=== PATIENT | female | born 1960 | race African-American/Black ===

== ENCOUNTER 2021-08-10 04:23 | Inpatient (IN) | payer BC ==
[2021-07-30 11:21] VITALS: BMI 28.8
[2021-08-10] MEDS ORDERED: ceFAZolin SODIUM 1 GM VIAL IVPB ONE ×3 (15:12→20:30)
[2021-08-10] MEDS ORDERED: VANCOMYCIN 1,000 MG VIAL (RESTRICTED TO ID ONLY) IVPB ONE (15:12)
[2021-08-10] MEDS ORDERED: SODIUM CHLORIDE 0.9% P/F 10 ML VIAL IJ ONE (17:38)
[2021-08-10] MEDS ORDERED: ceFAZolin SODIUM 1 GM VIAL ONE ×2 (18:22→20:02)
[2021-08-10] MEDS ORDERED: PROPOFOL 20 ML ONE (18:32)
[2021-08-10] MEDS ORDERED: ONDANSETRON 4 MG/2 ML VIAL ONE (18:53)
[2021-08-10] MEDS ORDERED: DEXAMETHASONE SOD PHOSPHATE 4 MG/1 ML VIAL ONE (18:53)
[2021-08-10] MEDS ORDERED: KETOROLAC TROMETHAMINE 30 MG/1 ML VIAL ONE (20:24)
[2021-08-10] MEDS ORDERED: ONDANSETRON 4 MG/2 ML VIAL IVPUSH PRN ×2 (21:01→21:10)
[2021-08-10] MEDS ORDERED: MAGNESIUM HYDROX 2400MG/30ML ORAL SUSPENSION 30 ML CUP PO PRN (21:01)
[2021-08-10] MEDS ORDERED: MAG HYDROX/AL HYDROX/SIMETH 30 ML UNIT-DOSE CUP PO PRN (21:01)
[2021-08-10] MEDS: HYDROmorphone HCl 2 MG/ML VIAL IVPUSH PRN ×2 (21:10→22:10)
[2021-08-10] MEDS ORDERED: LACTATED RINGERS SOLUTION 1,000 ML IV SCH (21:15)
[2021-08-10] MEDS: ACETAMINOPHEN 1000 MG/100 ML VIAL IVPB SCH (21:15)
[2021-08-10] MEDS ORDERED: HYDROmorphone HCl 2 MG/ML VIAL IVPUSH PRN (21:15)
[2021-08-10] MEDS ORDERED: HYDROmorphone HCl 2 MG/ML VIAL SQ PRN (21:24)
[2021-08-10] MEDS: LACTATED RINGERS SOLUTION 1,000 ML IV SCH (22:30)
[2021-08-10] MEDS: ROSUVASTATIN CA 40 MG TABLET PO SCH (23:24)
[2021-08-10] MEDS: ASPIRIN COATED 81 MG TABLET.EC PO SCH (23:24)
[2021-08-10] MEDS: SENNOSIDES/DOCUSATE COMBO (SENNA PLUS) TABLET (UD) PO SCH (23:24)
[2021-08-11] MEDS: CEFAZOLIN 2 GM in DEXTROSE 5%-WATER 100 ML IVPB SCH ×3 (01:08→17:15)
[2021-08-11] MEDS: ACETAMINOPHEN 1000 MG/100 ML VIAL IVPB SCH ×3 (02:37→16:34)
[2021-08-11] MEDS: oxyCODONE HCL 5 MG TABLET PO PRN ×2 (05:52→14:17)
[2021-08-11] MEDS: INSULIN SLIDING SCALE (NOVOLOG) 1 VIAL SQ SCH ×4 (06:01→21:51)
[2021-08-11 07:17] LABS: PH,URINE 5.5 (5.0-8.0); URINE APPEARANCE CLEAR; URINE BILIRUBIN NEGATIVE (NEGATIVE); URINE COLOR YELLOW; URINE GLUCOSE (UA) NEGATIVE (NEGATIVE); URINE KETONE NEGATIVE (NEGATIVE); URINE LEUK ESTERASE NEGATIVE (NEGATIVE); URINE NITRITE NEGATIVE (NEGATIVE); URINE PROTEIN NEGATIVE (NEGATIVE); URINE UROBILINOGEN 0.2 mg/dL (0.2-1.0)
[2021-08-11] MEDS ORDERED: ceFAZolin SODIUM 1 GM VIAL ONE (08:09)
[2021-08-11] MEDS ORDERED: DEXTROSE 5%-WATER 100 ML IVPB ONE (08:09)
[2021-08-11 08:32] LABS: HEMOGLOBIN 11.6 GM/dL (10.7-15.3); MCH 26.3 pg (25.7-33.7); MCHC 33.1 g/dl (32.0-36.0); MEAN CELL VOLUME 79.5 fl (80-96); MEAN PLT VOLUME 9.7 fl (7.5-11.1); PLATELET COUNT 161 10^3/uL (134-434); RDW 16.1 % (11.6-15.6); WHITE BLOOD COUNT 10.1 K/mm3 (4.0-10.0)
[2021-08-11 08:56] LABS: BLOOD UREA NITROGEN 14.2 mg/dL (7-18); MAGNESIUM 2.2 mg/dL (1.8-2.4)
[2021-08-11 08:59] LABS: PHOSPHOROUS 3.7 mg/dL (2.5-4.9)
[2021-08-11] MEDS: CELECOXIB 200 MG CAPSULE PO SCH ×3 (09:07→21:10)
[2021-08-11] MEDS: CHOLECALCIFEROL (VIT D3) 1,000 UNIT (25 MCG) TABLET PO SCH (09:11)
[2021-08-11] MEDS: PANTOPRAZOLE 40 MG TABLET PO SCH (09:11)
[2021-08-11] MEDS: ASPIRIN COATED 81 MG TABLET.EC PO SCH (09:11)
[2021-08-11] MEDS: SENNOSIDES/DOCUSATE COMBO (SENNA PLUS) TABLET (UD) PO SCH ×2 (09:12→21:50)
[2021-08-11] MEDS ORDERED: PATIENT'S OWN MEDICATION (NON-FORMULARY) (Semaglutide [Rybelsus] 3 MG Tablet) PO SCH (10:00)
[2021-08-11] MEDS: ENOXAPARIN NA (PORCINE) 40 MG/0.4 ML DISP.SYRIN SQ SCH (12:36)
[2021-08-11] MEDS: LACTATED RINGERS SOLUTION 1,000 ML IV SCH (21:51)
[2021-08-11] MEDS: ROSUVASTATIN CA 40 MG TABLET PO SCH (22:43)
[2021-08-11] MEDS: ROSUVASTATIN CA 20 MG TABLET (FP) PO SCH (22:44)
[2021-08-12] MEDS: oxyCODONE HCL 5 MG TABLET PO PRN ×3 (02:33→21:17)
[2021-08-12] MEDS: INSULIN SLIDING SCALE (NOVOLOG) 1 VIAL SQ SCH ×4 (06:33→21:19)
[2021-08-12 07:52] LABS: HEMATOCRIT 28.7 % (32.4-45.2); HEMOGLOBIN 9.9 GM/dL (10.7-15.3); MCH 26.7 pg (25.7-33.7); MCHC 34.3 g/dl (32.0-36.0); MEAN CELL VOLUME 77.9 fl (80-96); MEAN PLT VOLUME 9.4 fl (7.5-11.1); PLATELET COUNT 128 10^3/uL (134-434); RBC 3.69 M/mm3 (3.60-5.2); RDW 15.6 % (11.6-15.6); WHITE BLOOD COUNT 7.4 K/mm3 (4.0-10.0)
[2021-08-12 08:13] LABS: CALCIUM 8.4 mg/dL (8.5-10.1)
[2021-08-12 08:15] LABS: BLOOD UREA NITROGEN 10.9 mg/dL (7-18)
[2021-08-12 08:18] LABS: CREATININE 0.9 mg/dL (0.55-1.3)
[2021-08-12] MEDS ORDERED: PT OWN MED DRAWER 7, Y5N ONE ×2 (08:42→21:11)
[2021-08-12] MEDS: CELECOXIB 200 MG CAPSULE PO SCH ×2 (08:43→21:19)
[2021-08-12] MEDS: CHOLECALCIFEROL (VIT D3) 1,000 UNIT (25 MCG) TABLET PO SCH (09:53)
[2021-08-12] MEDS: SENNOSIDES/DOCUSATE COMBO (SENNA PLUS) TABLET (UD) PO SCH ×2 (09:53→21:19)
[2021-08-12] MEDS: PANTOPRAZOLE 40 MG TABLET PO SCH (09:53)
[2021-08-12] MEDS: ENOXAPARIN NA (PORCINE) 40 MG/0.4 ML DISP.SYRIN SQ SCH (09:55)
[2021-08-12] MEDS: ROSUVASTATIN CA 20 MG TABLET (FP) PO SCH (21:18)
[2021-08-13] MEDS: INSULIN SLIDING SCALE (NOVOLOG) 1 VIAL SQ SCH ×4 (06:06→21:05)
[2021-08-13 07:26] LABS: HEMATOCRIT 27.5 % (32.4-45.2); HEMOGLOBIN 9.3 GM/dL (10.7-15.3); MCH 26.7 pg (25.7-33.7); MCHC 33.8 g/dl (32.0-36.0); MEAN CELL VOLUME 79.1 fl (80-96); MEAN PLT VOLUME 9.4 fl (7.5-11.1); PLATELET COUNT 144 10^3/uL (134-434); RBC 3.47 M/mm3 (3.60-5.2); RDW 15.6 % (11.6-15.6); WHITE BLOOD COUNT 7.7 K/mm3 (4.0-10.0)
[2021-08-13 07:46] LABS: ALBUMIN 2.4 g/dl (3.4-5.0); CALCIUM 8.6 mg/dL (8.5-10.1)
[2021-08-13 07:48] LABS: BLOOD UREA NITROGEN 5.9 mg/dL (7-18)
[2021-08-13 07:51] LABS: CREATININE 0.8 mg/dL (0.55-1.3)
[2021-08-13 07:52] LABS: BILIRUBIN,TOTAL 0.5 mg/dL (0.2-1); TOT PROT 5.6 g/dl (6.4-8.2)
[2021-08-13] MEDS ORDERED: PT OWN MED DRAWER 7, Y5N ONE ×2 (09:15→20:57)
[2021-08-13] MEDS: ENOXAPARIN NA (PORCINE) 40 MG/0.4 ML DISP.SYRIN SQ SCH (09:16)
[2021-08-13] MEDS: SENNOSIDES/DOCUSATE COMBO (SENNA PLUS) TABLET (UD) PO SCH ×2 (09:16→21:20)
[2021-08-13] MEDS: CHOLECALCIFEROL (VIT D3) 1,000 UNIT (25 MCG) TABLET PO SCH (09:16)
[2021-08-13] MEDS: oxyCODONE HCL 5 MG TABLET PO PRN (09:17)
[2021-08-13] MEDS: CELECOXIB 200 MG CAPSULE PO SCH ×2 (09:17→21:00)
[2021-08-13] MEDS: PANTOPRAZOLE 40 MG TABLET PO SCH (09:17)
[2021-08-13] MEDS ORDERED: BISACODYL 5 MG TABLET.DR (FP) PO ONE (18:37)
[2021-08-13] MEDS: DOCUSATE SODIUM 100 MG CAPSULE (FP) PO SCH ×2 (21:20→21:23)
[2021-08-13] MEDS: ROSUVASTATIN CA 20 MG TABLET (FP) PO SCH (21:20)
[2021-08-14] MEDS: INSULIN SLIDING SCALE (NOVOLOG) 1 VIAL SQ SCH ×3 (06:33→17:00)
[2021-08-14] MEDS: oxyCODONE HCL 5 MG TABLET PO PRN (08:24)
[2021-08-14] MEDS: CELECOXIB 200 MG CAPSULE PO SCH (08:25)
[2021-08-14] MEDS: SENNOSIDES/DOCUSATE COMBO (SENNA PLUS) TABLET (UD) PO SCH (09:19)
[2021-08-14] MEDS: CHOLECALCIFEROL (VIT D3) 1,000 UNIT (25 MCG) TABLET PO SCH (09:19)
[2021-08-14] MEDS: ENOXAPARIN NA (PORCINE) 40 MG/0.4 ML DISP.SYRIN SQ SCH (09:19)
[2021-08-14] MEDS: PANTOPRAZOLE 40 MG TABLET PO SCH (09:19)
[2021-08-14 14:34] VITALS: BP 113/63; PULSE 88; TEMP 98.1
== END 2021-08-14 19:01 | disposition home or self-care (01) | DRG 470 ==
LOC: JASUSAT 04:23 → J6S 21:01 → JASUSAT 23:05
PROVIDERS: ADMIT Orthopaedic Surgery Orthopaedic Surgery of the Spine; ATTEND Internal Medicine
PROC: 0SRC0J9 Replacement of Right Knee Joint with Synthetic Substitute, Cemented, Open Approach (ICD-10-PCS; 2021-08-10)
PROC: 2W3QX1Z Immobilization of Right Lower Leg using Splint (ICD-10-PCS; 2021-08-10)
PROC: 0SPC04Z Removal of Internal Fixation Device from Right Knee Joint, Open Approach (ICD-10-PCS; principal; 2021-08-10 11:00)
DX: M17.11 Unilateral primary osteoarthritis, right knee (principal); E11.9 Type 2 diabetes mellitus without complications; E55.9 Vitamin D deficiency, unspecified; Z96.651 Presence of right artificial knee joint; E78.5 Hyperlipidemia, unspecified
CPT/HCPCS: 36415; 73560-TC-RT-FY; 80048; 80053; 81003; 82306; 82962; 83735; 84100; 85027; 86850; 86870; 86900; 86901; 86902; 86922; 88304-TC; 88311-TC; 93971-TC; 94010; 94760; 97116-GP; 97162-GP; J0131

== ENCOUNTER 2021-08-31 14:18 | Emergency (ER) | payer BC ==
[2021-08-31 14:44] VITALS: BMI 28.8
[2021-08-31 16:53] LABS: INR 1.15 (0.83-1.09); PROTHROMBIN TIME (PATIENT) 13.5 SEC (9.7-13.0)
[2021-08-31 16:56] LABS: ACTIVATED PTT 29.1 SECONDS (25.2-36.5)
[2021-08-31 17:09] LABS: CHLORIDE 105 mmol/L (98-107); SODIUM 136 mmol/L (136-145)
[2021-08-31 17:11] LABS: ALBUMIN 3.6 g/dl (3.4-5.0); CALCIUM 9.4 mg/dL (8.5-10.1)
[2021-08-31 17:12] LABS: ANION GAP 7 MMOL/L (8-16); BLOOD UREA NITROGEN 11.8 mg/dL (7-18); CO2 25 mmol/L (21-32); GLUCOSE,RANDOM 86 mg/dL (74-106)
[2021-08-31 17:14] LABS: SGPT/ALT 21 U/L (13-61)
[2021-08-31 17:15] LABS: CREATININE 1.1 mg/dL (0.55-1.3); SGOT/AST 31 U/L (15-37)
[2021-08-31 17:16] LABS: BILIRUBIN,TOTAL 0.4 mg/dL (0.2-1); TOT PROT 7.7 g/dl (6.4-8.2)
[2021-08-31 17:17] LABS: ALK PHOS 106 U/L (45-117)
[2021-08-31 18:31] LABS: EOS % 5.7 % (0-4.5); HEMATOCRIT 33.3 % (32.4-45.2); HEMOGLOBIN 11.1 GM/dL (10.7-15.3); LYMPH % 29.7 % (8-40); MCH 26.3 pg (25.7-33.7); MCHC 33.2 g/dl (32.0-36.0); MEAN CELL VOLUME 79.3 fl (80-96); MONO % 8.6 % (3.8-10.2); PLATELET COUNT 341 10^3/uL (134-434); RBC 4.19 M/mm3 (3.60-5.2); RDW 16.2 % (11.6-15.6); WHITE BLOOD COUNT 7.3 K/mm3 (4.0-10.0)
[2021-08-31 21:50] VITALS: BP 109/78; PULSE 89; TEMP 98.1
== END 2021-08-31 23:00 | disposition home or self-care (01) ==
LOC: JER 14:18
DX: R06.02 Shortness of breath (principal)
CPT/HCPCS: 36415; 71275-TC; 80053; 82550; 84484; 85025; 85379; 85610; 85730; 93005; 93010; 99285-25; Q9967